=== PATIENT | female | born 1965 | race Caucasian/White ===

== ENCOUNTER 2016-12-12 14:38 | Emergency (ER) | payer SELFPAY ==
[~2016-12-12] VITALS: Ht 172.7 cm; Wt 73.0 kg
[~2016-12-12 14:38] MED LIST: HYDR-3535 PO; SOMA350T PO; ULTR50TA PO; VALI5TAB PO
[2016-12-12 14:45] VITALS: BP 126/82; PULSE 84; RESP 16; TEMP 98.3; O2SAT 92
[2016-12-12] MEDS ORDERED: LIDOCAINE 1%/EPINEPHrine 1:100,000 SOLN 30 ML VIAL INFIL ONE (15:30)
[2016-12-12] MEDS ORDERED: LIDOCAINE 1%/EPINEPHrine 1:100,000 SOLN 20 ML VIAL INFIL ONE (15:30)
--- NOTE | 2016-12-12 15:30 | PD ---
HPI Chief Complaint: Skin Problem Time Seen by Provider: 15:10 Travel History International Travel<30 days: No Contact w/Intl Traveler<30days: No Traveled to known affect area: No History of Present Illness HPI 51-year-old female presents to the emergency room for evaluation of abscess to her left buttocks for the past 6 days that worsened 2 days ago. Patient reports history of similar boils on her buttocks that generally go away on their own. After onset, she applied alcohol topically and left it on for a long period of time to try to help relieve the symptoms. She reports slight drainage. Denies fever, chills, nausea, and vomiting. She has history of lung cancer 1.5 years ago and opted not to pursue treatment. 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) ?: Not Menopausal: Yes : 4 Para: 3 : 1 Tubal Ligation: Yes Past Surgical History Gynecologic Surgery: Yes (HX OF CERVIAL CANCER ) Hysterectomy: Yes Social History Alcohol Use: Yes (PT STATES " DRINK ON OCCASION") Tobacco Use: Yes (1/2 TO 1 PACK PER WEEK) Substance Use: No Allergies-Medications (Allergen,Severity, Reaction): Coded Allergies: Penicillin (Verified Allergy, Severe, "THROAT CLOSES UP", 12/12/16) Reported Meds & Prescriptions Reported Meds & Active Scripts Active Bactrim DS (Sulfamethoxazole-Trimethoprim) 800-160 Mg Tab 1 Tab PO BID Review of Systems Except as stated in HPI: all other systems reviewed are Neg Physical Exam Narrative GENERAL: Well-nourished, well-developed female in no acute distress. Afebrile. Ambulatory. SKIN: Focused skin assessment warm/dry. There is an indurated area in the left buttocks which measures about 6 cm in diameter. It is fluctuant but there is no pointing or drainage. There is a zone of inflammation around it but no lymphangitis. HEAD: Normocephalic. EYES: No scleral icterus. No injection or drainage. NECK: Supple, trachea midline. No JVD or lymphadenopathy. CARDIOVASCULAR: Regular rate and rhythm without murmurs, gallops, or rubs. RESPIRATORY: Breath sounds equal bilaterally. No accessory muscle use. PSYCHIATRIC: No delusional thought processes. No hallucinations. Data Data Last Documented VS Vital Signs Date Time Temp Pulse Resp B/P Pulse Ox O2 Delivery O2 Flow Rate FiO2 12/12/16 14:45 98.3 84 16 126/82 92 Orders Lidocai-Epi 1%-1:100,000 Inj (Xylocaine- (12/12/16 15:30) Lidocai-Epi 1%-1:100,000 Inj (Xylocaine- (12/12/16 15:30) MDM Medical Decision Making Medical Screen Exam Complete: Yes Emergency Medical Condition: Yes Medical Record Reviewed: Yes Differential Diagnosis Abscess, cellulitis, cyst, folliculitis Narrative Course 51-year-old female presents to the emergency room for evaluation of an abscess to her left buttocks for the past 6 days that worsened 2 days ago. Patient is afebrile and well-appearing in the emergency room. Vital signs stable. Physical exam reveals a 6 cm abscess to the left buttocks without lymphangitis. There is mild spontaneous drainage. Abscess was drained, see procedure note for details. Patient discharged Bactrim and told to follow-up the primary care physician or return for worsening symptoms. She understands and agrees to plan. Procedures Procedure Narrative INCISION AND DRAINAGE OF ABSCESS: The area was prepped and was sterilely draped. A subcutaneous wheal of 1% lidocaine with epinephrine with a total number 2 mL was used to anesthetize the area properly. A number 11 scalpel was used to make a 1 cm incision across the area of the abscess. The abscess was drained, complex loculations were broken down, and irrigated with normal saline. Cultures were obtained. Quarter inch iodoform packing was placed in the wound. Sterile dressing applied. Patient advised to have packing removed in two days. Diagnosis Primary Impression: Abscess of left buttock Referrals: Primary Care Physician Patient Instructions: Abscess (ED), General Instructions Additional Instructions: Rest and drink plenty of fluids. Take Bactrim as directed, until gone. Follow up with a primary care physician. Return to emergency room for worsening symptoms, as discussed. Med/Other Pt SpecificInfo: Prescription(s) given Scripts Sulfamethoxazole-Trimethoprim (Bactrim DS)800-160 Mg Tab1 Tab PO BID #20 TAB Ref 0 Prov:Eber Quintanilla MD 12/12/16 Disposition: 01 DISCHARGE HOME Condition: Stable Roxi High Dec 12, 2016 15:30
[2016-12-12] MEDS ORDERED: BACT800T5 PO (15:44)
== END 2016-12-12 16:26 | disposition home or self-care (01) ==
LOC: PHEFT 14:38
DX: L02.31 Cutaneous abscess of buttock (principal); J44.9 Chronic obstructive pulmonary disease, unspecified; F17.210 Nicotine dependence, cigarettes, uncomplicated; B95.62 Methicillin resistant Staphylococcus aureus infection as the cause of diseases classified elsewhere; Z85.118 Personal history of other malignant neoplasm of bronchus and lung; Z85.41 Personal history of malignant neoplasm of cervix uteri
CPT/HCPCS: 10060; 86403; 87070; 87186; 87205

== ENCOUNTER 2017-12-14 15:45 | Emergency (ER) | payer SELFPAY ==
[~2017-12-14] VITALS: Ht 172.7 cm; Wt 67.2 kg
[~2017-12-14 15:45] MED LIST changes: +BACT800T5 PO; -HYDR-3535 PO; -SOMA350T PO; -ULTR50TA PO; -VALI5TAB PO
[2017-12-14 15:57] VITALS: BP 141/84; PULSE 89; RESP 16; TEMP 98.8; O2SAT 94
--- NOTE | 2017-12-14 16:42 | PD ---
HPI Chief Complaint: Hemoptysis Time Seen by Provider: 16:25 Travel History International Travel<30 days: No Contact w/Intl Traveler<30days: No Traveled to known affect area: No History of Present Illness HPI 52yo F with PMH of lung CA who refused any treatments, COPD here with c/o hemoptysis. Said there was blood clots and started about an hour ago. Said she has cough up blood before but not this much. Said she has been sick and coughing more for the last 2 weeks. Denies any fever, chest pain, sob, n/v, abdominal pain, focal weakness or numbness. 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) ?: Not Menopausal: Yes : 4 Para: 3 : 1 Tubal Ligation: Yes Past Surgical History Gynecologic Surgery: Yes (HX OF CERVIAL CANCER ) Hysterectomy: Yes Social History Alcohol Use: Yes (PT STATES " DRINK ON OCCASION") Tobacco Use: Yes (1/2 TO 1 PACK PER WEEK) Substance Use: No Allergies-Medications (Allergen,Severity, Reaction): Coded Allergies: penicillin G (Unverified Allergy, Severe, "THROAT CLOSES UP", 12/14/17) *MDRO Multi-Drug Resistant Organism (Verified Adverse Reaction, Unknown, ) MRSA (buttock)-12/12/16 Reported Meds & Prescriptions Reported Meds & Active Scripts Active No Active Prescriptions or Reported Medications Review of Systems Except as stated in HPI: all other systems reviewed are Neg Physical Exam Narrative GENERAL: 52yo F not in distress. SKIN: Focused skin assessment warm/dry. HEAD: Atraumatic. Normocephalic. EYES: Pupils equal and round. No scleral icterus. No injection or drainage. ENT: No nasal bleeding or discharge. Mucous membranes pink and moist. Throat: Clear. NECK: Trachea midline. No JVD. CARDIOVASCULAR: Regular rate and rhythm. No murmur appreciated. RESPIRATORY: No accessory muscle use. Clear to auscultation. Breath sounds equal bilaterally. GASTROINTESTINAL: Abdomen soft, non-tender, nondistended. MUSCULOSKELETAL: No obvious deformities. No clubbing. No cyanosis. No edema. NEUROLOGICAL: Awake and alert. No obvious cranial nerve deficits. Motor grossly within normal limits. Normal speech. PSYCHIATRIC: Appropriate mood and affect; insight and judgment normal. Data Data Last Documented VS Vital Signs Date Time Temp Pulse Resp B/P (MAP) Pulse Ox O2 Delivery O2 Flow Rate FiO2 12/14/17 19:08 112/65 (81) 12/14/17 18:47 77 16 94 Room Air 12/14/17 15:57 98.8 Orders Orders Complete Blood Count With Diff (12/14/17 16:42) Basic Metabolic Panel (Bmp) (12/14/17 16:42) Prothrombin Time / Inr (Pt) (12/14/17 16:42) Act Partial Throm Time (Ptt) (12/14/17 16:42) Type And Screen (12/14/17 16:42) Chest, Single Ap (12/14/17 ) Ct Pulmonary Angiogram (12/14/17 ) Iohexol 350 Inj (Omnipaque 350 Inj) (12/14/17 18:38) Labs Laboratory Tests Test 12/14/17 16:50 White Blood Count 9.4 TH/MM3 Red Blood Count 4.46 MIL/MM3 Hemoglobin 13.3 GM/DL Hematocrit 39.5 % Mean Corpuscular Volume 88.7 FL Mean Corpuscular Hemoglobin 29.7 PG Mean Corpuscular Hemoglobin Concent 33.5 % Red Cell Distribution Width 13.5 % Platelet Count 382 TH/MM3 Mean Platelet Volume 7.0 FL Neutrophils (%) (Auto) 65.7 % Lymphocytes (%) (Auto) 24.4 % Monocytes (%) (Auto) 7.4 % Eosinophils (%) (Auto) 1.7 % Basophils (%) (Auto) 0.8 % Neutrophils # (Auto) 6.1 TH/MM3 Lymphocytes # (Auto) 2.3 TH/MM3 Monocytes # (Auto) 0.7 TH/MM3 Eosinophils # (Auto) 0.2 TH/MM3 Basophils # (Auto) 0.1 TH/MM3 CBC Comment DIFF FINAL Differential Comment Prothrombin Time 10.5 SEC Prothromb Time International Ratio 1.0 RATIO Activated Partial Thromboplast Time 28.9 SEC Blood Urea Nitrogen 14 MG/DL Creatinine 0.73 MG/DL Random Glucose 98 MG/DL Calcium Level 9.1 MG/DL Sodium Level 138 MEQ/L Potassium Level 3.9 MEQ/L Chloride Level 101 MEQ/L Carbon Dioxide Level 29.5 MEQ/L Anion Gap 8 MEQ/L Estimat Glomerular Filtration Rate 84 ML/MIN MDM Medical Decision Making Medical Screen Exam Complete: Yes Emergency Medical Condition: Yes Differential Diagnosis Hemoptysis secondary to bronchitis vs. malignancy vs. PE Narrative Course 52yo F who has known lung CA and has refused surgery or chemotherapy here with c /o hemoptysis today. She is well appearing and saturating at 94% on room air. Labs reviewed, no leukocytosis. H/H normal. BMP unremarkable. CT angio showed no PE. There is a 15mm nodule focular focus in posterior lateral left lung base. Granuloma in right posterior sulcus. Informed pt of this. BP was initially mildly elevated and then was low and pt said her blood pressure usually runs low and was nervous in the beginning. Repeat BP is 112/65 and pt said this is her normal. Pt has been observed in the ED for 3 hours with no episode of hemoptysis. Said her coughing has actually improved in the ED. Pt is very well appearing and instructed to follow up with [facility]. Return precautions given. Diagnosis Primary Impression: Hemoptysis Additional Impression: Bronchitis Referrals: Min Orozco MD call for appointment Patient Instructions: General Instructions Departure Forms: Tests/Procedures Additional Instructions: Please follow up with [facility] as outpatient. Return to the ED if your symptoms worsen. Scripts No Active Prescriptions or Reported Meds Disposition: 01 DISCHARGE HOME Condition: Stable Hien Murrell Dec 14, 2017 16:42
[2017-12-14 16:57] LABS: AUTOMATED NEUTROPHIL # 6.1 TH/MM3 (1.8-7.7); BASOPHIL # 0.1 TH/MM3 (0-0.2); BASOPHIL % 0.8 % (0.0-2.0); EOSINOPHIL # 0.2 TH/MM3 (0-0.4); EOSINOPHIL % 1.7 % (0.0-4.0); HEMATOCRIT 39.5 % (35.0-46.0); HEMOGLOBIN 13.3 GM/DL (11.6-15.3); LYMPH % 24.4 % (9.0-44.0); LYMPHOCYTE # 2.3 TH/MM3 (1.0-4.8); MEAN CELL VOLUME 88.7 FL (80.0-100.0); MEAN CORPUSCULAR HEMOGLOBIN 29.7 PG (27.0-34.0); MEAN CORPUSCULAR HGB CONC 33.5 % (32.0-36.0); MONO % 7.4 % (0.0-8.0); MONOCYTE # 0.7 TH/MM3 (0-0.9); NEUT % 65.7 % (16.0-70.0); PLATELET COUNT 382 TH/MM3 (150-450); RED BLOOD COUNT 4.46 MIL/MM3 (4.00-5.30); RED CELL DISTRIBUTION WIDTH 13.5 % (11.6-17.2); WHITE BLOOD COUNT 9.4 TH/MM3 (4.0-11.0)
--- NOTE | 2017-12-14 17:01 | RADRPT ---
EXAM DATE: 12/14/2017 4:56 PM EDT AGE/SEX: 52 years / Female INDICATIONS: Hemoptysis for 2 hours CLINICAL DATA: This is the patient's initial encounter. Patient reports that signs and symptoms have been present for 1 day and indicates a pain score of 0/10. MEDICAL/SURGICAL HISTORY: Chronic obstructive pulmonary disease. Carcinoma, lung. None. COMPARISON: No prior exams available for comparison. FINDINGS: A single AP view of the chest demonstrates the lungs to be symmetrically aerated without evidence of mass, infiltrate or effusion. Granuloma right base The cardiomediastinal contours are unremarkable. Osseous structures are intact. CONCLUSION: Minimal right lung base otherwise negative. I do not see an etiology for the hemoptysis. Electronically signed by: Candido Cm MD 12/14/2017 5:00 PM EDT
[2017-12-14 17:07] LABS: CALCIUM 9.1 MG/DL (8.5-10.1)
[2017-12-14 17:08] LABS: BICARBONATE 29.5 MEQ/L (21.0-32.0)
[2017-12-14 17:11] LABS: CREATININE 0.73 MG/DL (0.50-1.00)
[2017-12-14 17:48] LABS: PROTHROMBIN TIME - PATIENT 10.5 SEC (9.8-11.6)
[2017-12-14] MEDS ORDERED: IOHEXOL 350 MG/ML 10 ML VIAL (for RAD DIAG) IVCONTRAST ONE (18:38)
[2017-12-14 18:47] VITALS: BP 92/73; PULSE 77; RESP 16; O2SAT 94
--- NOTE | 2017-12-14 18:48 | RADRPT ---
EXAM DATE: 12/14/2017 6:38 PM EDT AGE/SEX: 52 years / Female INDICATIONS: Hemoptysis with lung carcinoma. CLINICAL DATA: This is the patient's initial encounter. Patient reports that signs and symptoms have been present for 1 day and indicates a pain score of 0/10. MEDICAL/SURGICAL HISTORY: Carcinoma, lung. Chronic obstructive pulmonary disease. . RADIATION DOSE: 7.35 CTDI (mGy) COMPARISON: No prior exams available for comparison. TECHNIQUE: Volumetric scanning was performed using a multi-row detector CT scanner during bolus infu mehran of 65 ml Omnipaque 350 (iohexol) nonionic water-soluble contrast as a single exam dose. The ashanti a was post processed with a variety of visualization algorithms including full volume maximum intensi ty projection and sliding thin slab reformation. Using automated exposure control and adjustment of the mA and/or kV according to patient size, radiation dose was kept as low as reasonably achievable t o obtain optimal diagnostic quality images. FINDINGS: Pulmonary Arteries: No filling defects are seen in the pulmonary arteries out to the subsegmental ve ssels. The left and right pulmonary arteries are normal in diameter. Lung: Mild linear probable pleural-parenchymal scarring in the right middle lobe. 15 mm nodular focu s in the posterior lateral left lung base. Granuloma in the right posterior sulcus. Effusion: None. Mediastinum: No evidence of mediastinal or hilar adenopathy. Other: The axilla is unremarkable. CONCLUSION: No evidence of pulmonary embolism. Electronically signed by: Navi Light MD 12/14/2017 6:47 PM EDT
[2017-12-14 19:08] VITALS: BP 112/65
== END 2017-12-14 19:30 | disposition home or self-care (01) ==
LOC: PHED 15:45
DX: R04.2 Hemoptysis (principal); J40 Bronchitis, not specified as acute or chronic; J44.9 Chronic obstructive pulmonary disease, unspecified; M19.049 Primary osteoarthritis, unspecified hand; M17.9 Osteoarthritis of knee, unspecified; F41.9 Anxiety disorder, unspecified; R01.1 Cardiac murmur, unspecified; F17.200 Nicotine dependence, unspecified, uncomplicated; Z86.69 Personal history of other diseases of the nervous system and sense organs; Z85.118 Personal history of other malignant neoplasm of bronchus and lung; Z88.0 Allergy status to penicillin
CPT/HCPCS: 71045; 71275; 80048; 85025; 85610; 85730; 86850; 86900; 86901; 99285; Q9967